=== PATIENT | female | born 1975 | race Caucasian/White ===

== ENCOUNTER → 2020-07-17 01:56 | Outpatient (CLI) | payer OTHER, SELFPAY ==
[2020-07-17 17:04] LABS: SARS-CoV-2 RNA PCR Negative
== END ==
PROVIDERS: PCP Internal Medicine; Visit Provider Internal Medicine Gastroenterology
DX: Z01.812 Encounter for preprocedural laboratory examination (principal); Z20.822 Contact with and (suspected) exposure to COVID-19
CPT/HCPCS: C9803; U0003; U0005

== ENCOUNTER 2020-07-20 00:49 | Day surgery (SDC) | payer OTHER, SELFPAY ==
[2020-07-11 08:41] VITALS: BMI 28.9
[2020-07-20 08:45] VITALS: BP 127/94; PULSE 88; RESP 16; TEMP 36.5; O2SAT 100; BMI 27.9
[2020-07-20] MEDS: LACTATED RINGERS 1,000 ML 150 ML IV CONT (08:53)
--- NOTE | 2020-07-20 09:04 | WPDGICN ---
GI Consult Note Consult date/time: 07/20/20 09:04 HPI: Reason for visit colonoscopy. This very pleasant lady seen in consultation request the primary physician. Impression: Her very pleasant lady with history of constipation and remote history of diarrhea. She is here for colonoscopy to assess for inflammatory Or neoplastic disease. Symptoms are most likely compatible to underlying IBS with constipation variant at this time. Non celiac gluten sensitivity. Graves disease status post radioactive iodine treatment. Now hypothyroid. History Zenker's diverticulum. Anxiety / depression. recommendation: Decreased Linzess does. Colonoscopy. History: This very pleasant lady has a history non celiac gluten sensitivity. She has remote history of diarrhea in the past. Patient recently has began complaining of increasing constipation. She is placed on Benefiber and align which seemed to help her symptoms. However, she continues passed mucus. Hematochezia, melena acholic stools tonight. She is here for colonoscopy. Physical examination: General: very pleasant patient in no acute distress. HEENT: Head was normocephalic sclerae is clear mouth without masses neck was supple. Heart: Rate rhythm regular without S3 or S4. Lungs: CTA. Abdomen: Soft with no guarding or rigidity. Bowel sounds were active. Neurologic: Cranial nerves 2 through 12 intact. No focal defects. No clonus. Musculoskeletal system: Revealed no joint tenderness or swelling no muscle atrophy. Extremities: Reveal no significant edema. Skin: Warm and dry with normal turgor. Mental status: intact. Patient is alert and oriented. Review of Systems Review of Systems: All systems reviewed & are unremarkable except as noted in HPI and below PMFSH Social History Social History (System 07/13/20 @ 12:23 by Emi Fabian) Smoking packs per day: 1 Smoking cigarettes per day: 20.0 Years smoked: 10 Smoking pack-years: 10.00 Smoking status: Former smoker Tobacco type: cigarettes Smoking end date: 02/17/17 Alcohol intake: current Alcohol use details: rarely Living arrangements: with family Gender identity (if verbalized by the patient): Female Spiritual care concerns: No Meds Home Medications and Allergies Home Medications Medication Instructions Recorded Confirmed Type Bifidobacterium infantis [Align] 10.5 mg PO DAILY 07/11/20 07/11/20 History levothyroxine 112 mcg PO DAILY 07/11/20 07/11/20 History linaclotide [Linzess] 145 mcg PO DAILY 07/11/20 07/11/20 History lorazepam 1 mg PO DAILY 07/11/20 07/11/20 History olmesartan 40 mg PO DAILY 07/11/20 07/11/20 History ubrogepant [Ubrelvy] 100 mg PO DAILY 07/11/20 07/11/20 History venlafaxine 75 mg PO HS 07/11/20 07/11/20 History Allergies Allergy/AdvReac Type Severity Reaction Status Date / Time amlodipine [From Lotrel] Allergy Swelling Verified 07/20/20 08:43 of Lip/Tongue/Throat benazepril [From Lotrel] Allergy Swelling Verified 07/20/20 08:43 of Lip/Tongue/Throat Vital Signs Vital Signs - 24 hr 07/20/20 08:45 Temperature 36.5 C Pulse Rate 88 Respiratory Rate 16 Blood Pressure 127/94 H Pulse Oximetry 100
--- NOTE | 2020-07-20 09:21 | WPDANESEPPF ---
Anes - Initial Pre Proc Eval Procedure: Operation Date: 07/20/20 10:00 Proposed Procedures p Screening Colonoscopy - Suleiman Valadez DO Date/Time: 07/20/20 09:21 Surgeon: Suleiman Valadez DO Pre Op Diagnosis: neoplasm screening Patient Data Age: 44 Gender: F Height: 5 ft 4 in Weight: 73.8 kg Last Vital Signs Temp 97.7 F 07/20/20 08:45 Pulse 88 07/20/20 08:45 Resp 16 07/20/20 08:45 BP 127/94 H 07/20/20 08:45 Pulse Ox 100 07/20/20 08:45 Allergies Allergy/AdvReac Type Severity Reaction Status Date / Time amlodipine [From Lotrel] Allergy Swelling Verified 07/20/20 08:43 of Lip/Tongue/Throat benazepril [From Lotrel] Allergy Swelling Verified 07/20/20 08:43 of Lip/Tongue/Throat Home Medications Medication Instructions Recorded Confirmed Type Bifidobacterium infantis [Align] 10.5 mg PO DAILY 07/11/20 07/11/20 History levothyroxine 112 mcg PO DAILY 07/11/20 07/11/20 History linaclotide [Linzess] 145 mcg PO DAILY 07/11/20 07/11/20 History lorazepam 1 mg PO DAILY 07/11/20 07/11/20 History olmesartan 40 mg PO DAILY 07/11/20 07/11/20 History ubrogepant [Ubrelvy] 100 mg PO DAILY 07/11/20 07/11/20 History venlafaxine 75 mg PO HS 07/11/20 07/11/20 History Patient hx anesthesia problems: none Family hx anesthesia problems: none PMFSH Past Medical History Medical History (Updated 07/20/20 @ 09:17 by Francois Villaseñor MD) Hypertension Hypothyroid Migraine Social History Social History (System 07/13/20 @ 12:23 by Emi Fabian) Smoking packs per day: 1 Smoking cigarettes per day: 20.0 Years smoked: 10 Smoking pack-years: 10.00 Smoking status: Former smoker Tobacco type: cigarettes Smoking end date: 02/17/17 Alcohol intake: current Alcohol use details: rarely Living arrangements: with family Gender identity (if verbalized by the patient): Female Spiritual care concerns: No Anes - Eval Final PreProcedure Day of Procedure 07/20/20 09:21 Patient weight: overweight Heart: regular rate and rhythm Lungs: clear to auscultation Airway: Mallampati scale class II Neurological: alert and oriented Last oral intake: >/= 8 hours ASA classification: III Emergent: no Anesthetic plan: proceed Anesthesia type and monitoring: general GIVS and standard monitoring Informed Consent: The patient's anesthetic plan and its attendant risks and benefits were discussed with the patient/family/POA. Questions were solicited and answers provided to the satisfaction of the patient/family/POA.
[2020-07-20 10:28] VITALS: BP 115/72; PULSE 72; RESP 23; O2SAT 100
[2020-07-20 10:38] VITALS: BP 107/73; PULSE 67; RESP 22; O2SAT 100
[2020-07-20 10:48] VITALS: BP 125/92; PULSE 62; RESP 15; O2SAT 100
== END 2020-07-20 10:54 | disposition home or self-care (01) ==
PROVIDERS: PCP Internal Medicine; Visit Provider Internal Medicine Gastroenterology
PROC: 0DJD8ZZ Inspection of Lower Intestinal Tract, Via Natural or Artificial Opening Endoscopic (ICD-10-PCS; CPT 45378; principal; 2020-07-20 10:00)
DX: K52.9 Noninfective gastroenteritis and colitis, unspecified (principal); K59.00 Constipation, unspecified; F41.8 Other specified anxiety disorders; E89.0 Postprocedural hypothyroidism; Z87.891 Personal history of nicotine dependence
CPT/HCPCS: 45380; 88305; J2704; J7120

== ENCOUNTER 2020-08-27 12:10 | Emergency (ER) | payer OTHER, SELFPAY ==
--- NOTE | ~2020-08-27 | XR_ITS ---
EXAMINATION: XR shoulder RT min 2V DATE: 08/27/2020 13:04 INDICATION: Right shoulder pain TECHNIQUE: 4 views of right shoulder were obtained. COMPARISON: None. FINDINGS: Bone alignment is normal. No fracture. Glenohumeral joint is normal. There is mild acromioc lavicular joint osteoarthritis. IMPRESSION: 1. Mild right acromioclavicular joint osteoarthritis. Reviewed, dictated and finalized at location A.
--- NOTE | ~2020-08-27 | CT_ITS ---
EXAMINATION: CT brain wo con DATE: 08/27/2020 12:57 INDICATION: Head injury. Right arm weakness. TECHNIQUE: Computed tomography (CT) of the head was performed without intravenous contrast. The mA wa s adjusted according to patient size. Iterative reconstruction technique was employed. The dose-lengt h product was 605.33 mGy-cm. COMPARISON: Head CT 11/07/2014, brain MRI 04/19/2012 FINDINGS: There is no intracranial hemorrhage, acute infarction, or abnormal intracranial mass lesion . The ventricles are normal in size. Cavum septum pellucidum and vergae are noted. There is minimal m ucosal thickening in the right maxillary sinus. The mastoid air cells are normal. The orbits are norm al. IMPRESSION: 1. Normal brain. Reviewed, dictated and finalized at location A. IMPRESSION: 1. Normal brain.
--- NOTE | ~2020-08-27 | CT_ITS ---
EXAMINATION: CT cervical spine wo con DATE: 08/27/2020 12:57 INDICATION: Neck injury. Right arm weakness. TECHNIQUE: Computed tomography (CT) of the cervical spine was performed without intravenous contrast. Automated exposure control and iterative reconstruction technique were employed. The dose-length pro duct was 216.67 mGy-cm. COMPARISON: None FINDINGS: There is mild emphysema. There is hypolordosis of cervical spine. Vertebral body heights an d intervertebral disc heights are normal. The following disc levels are specifically discussed: C2-C3: There is no uncovertebral joint osteoarthritis. There is no facet joint osteoarthritis. There is no neural foraminal stenosis. There is no central canal stenosis. C3-C4: There is mild left uncovertebral joint osteoarthritis. There is mild bilateral facet joint ost eoarthritis. There is no neural foraminal stenosis. There is no central canal stenosis. C4-C5: There is no uncovertebral joint osteoarthritis. There is no facet joint osteoarthritis. There is no neural foraminal stenosis. There is no central canal stenosis. C5-C6: There is no uncovertebral joint osteoarthritis. There is no facet joint osteoarthritis. There is no neural foraminal stenosis. There is no central canal stenosis. C6-C7: There is no uncovertebral joint osteoarthritis. There is no facet joint osteoarthritis. There is no neural foraminal stenosis. There is no central canal stenosis. C7-T1: There is no uncovertebral joint osteoarthritis. There is mild bilateral facet joint osteoarthr itis. There is no neural foraminal stenosis. There is no central canal stenosis. IMPRESSION: 1. No fracture. 2. Mild cervical spondylosis. Reviewed, dictated and finalized at location A.
--- NOTE | ~2020-08-27 | XR_ITS ---
EXAMINATION: XR forearm RT 2V DATE: 08/27/2020 13:37 INDICATION: Right forearm injury and pain. TECHNIQUE: 2 views of right forearm were obtained. COMPARISON: None. FINDINGS: Bone alignment is normal. No fracture. Joint spaces are well maintained. There is no elbow joint effusion. IMPRESSION: 1. No fracture. Reviewed, dictated and finalized at location A. IMPRESSION: 1. No fracture.
[2020-08-27 12:22] VITALS: BP 151/99; PULSE 76; RESP 20; TEMP 36.7; O2SAT 100
--- NOTE | 2020-08-27 13:24 | ED.GENADULT ---
HPI - General Adult General Chief complaint: Extremity Injury, Upper Stated complaint: fall, pain to head and right arm Time Seen by Provider: 08/27/20 12:40 Source: patient History of Present Illness HPI narrative: Patient is a 44 y/o female complaining of right sided headache and arm pain following a fall 1 week ago. She states that she fell down a flight of stairs at home. She did not immediately seek medical attention. However, she has persist pain and decided to come for evaluation. She describes her pain as aching and rates it as 8/10. She tooke Tylenol which did not help. Related Data Home Medications Medication Instructions Recorded Confirmed Bifidobacterium infantis [Align] 10.5 mg PO DAILY 07/11/20 07/11/20 levothyroxine 112 mcg PO DAILY 07/11/20 07/11/20 linaclotide [Linzess] 145 mcg PO DAILY 07/11/20 07/11/20 lorazepam 1 mg PO DAILY 07/11/20 07/11/20 olmesartan 40 mg PO DAILY 07/11/20 07/11/20 ubrogepant [Ubrelvy] 100 mg PO DAILY 07/11/20 07/11/20 venlafaxine 75 mg PO HS 07/11/20 07/11/20 Allergies Allergy/AdvReac Type Severity Reaction Status Date / Time amlodipine [From Lotrel] Allergy Swelling Verified 08/27/20 12:25 of Lip/Tongue/Throat benazepril [From Lotrel] Allergy Swelling Verified 08/27/20 12:25 of Lip/Tongue/Throat Review of Systems Review of Systems: All systems reviewed & are unremarkable except as noted in HPI and below Constitutional: Constitutional: Denies chills, Denies fever(s), Reports headache(s) and Denies weakness Eyes: Eyes: Denies blurry vision ENT: Reports headache(s) and Denies neck pain Cardiovascular: Cardiovascular: Denies chest pain and Denies dyspnea Respiratory: Respiratory: Denies cough and Denies dyspnea Gastrointestinal: Gastrointestinal: Denies abdominal pain, Denies diarrhea, Denies nausea and Denies vomiting Genitourinary: Genitourinary: Denies hematuria and Denies dysuria Musculoskeletal: Musculoskeletal: Denies back pain, Denies neck pain and Reports other (right arm pain) Neurologic: Reports headache(s) and Denies weakness [facility] Past Medical History Medical History Hypertension Hypothyroid Migraine Social History Social History Smoking packs per day: 1 Smoking cigarettes per day: 20.0 Years smoked: 10 Smoking pack-years: 10.00 Smoking status: Former smoker Tobacco type: cigarettes Smoking end date: 02/17/17 Alcohol intake: current Alcohol use details: rarely Gender identity (if verbalized by the patient): Female Spiritual care concerns: No Course Vital Signs Vital signs: Vital Signs Temperature 36.7 C 08/27/20 12:22 Pulse Rate 76 08/27/20 12:22 Respiratory Rate 20 08/27/20 12:22 Blood Pressure 151/99 H 08/27/20 12:22 Pulse Oximetry 100 08/27/20 12:22 Temperature 36.7 C 08/27/20 12:22 Pulse Rate 60 08/27/20 15:34 Respiratory Rate 20 08/27/20 15:34 Blood Pressure 140/88 08/27/20 15:34 Pulse Oximetry 99 08/27/20 15:34 Medical Decision Making Vital Signs Vital Signs: Vital Signs Temperature 36.7 C 08/27/20 12:22 Pulse Rate 76 08/27/20 12:22 Respiratory Rate 20 08/27/20 12:22 Blood Pressure 151/99 H 08/27/20 12:22 Pulse Oximetry 100 08/27/20 12:22 Temperature 36.7 C 08/27/20 12:22 Pulse Rate 60 08/27/20 15:34 Respiratory Rate 20 08/27/20 15:34 Blood Pressure 140/88 08/27/20 15:34 Pulse Oximetry 99 08/27/20 15:34 Discharge Plan Discharge Clinical Impression: Arm pain, right Headache Qualifiers: Headache type: unspecified Headache chronicity pattern: unspecified pattern Intractability: not intractable Qualified Code(s): R51.9 - Headache, unspecified Patient Disposition: Home, Self-Care Condition: Stable Instructions: Arm Pain (ED), General Headache (ED) Prescriptions: No Action venlafaxi
[2020-08-27] MEDS: KETOROLAC (*BKC) 60 MG/2 ML VIAL IM (13:51)
[2020-08-27 13:53] VITALS: BP 133/102; PULSE 67; RESP 20; O2SAT 100
[2020-08-27 14:53] VITALS: BP 114/77; PULSE 63; RESP 20; O2SAT 100
[2020-08-27 15:34] VITALS: BP 140/88; PULSE 60; RESP 20; O2SAT 99
== END 2020-08-27 15:37 | disposition home or self-care (01) ==
PROVIDERS: Emergency Provider Emergency Medicine; PCP Internal Medicine
DX: R51.9 Headache, unspecified (principal); M79.601 Pain in right arm; I10 Essential (primary) hypertension; E03.9 Hypothyroidism, unspecified; Z87.891 Personal history of nicotine dependence
CPT/HCPCS: 70450; 72125; 73030; 73090; 96372; 99284; A9270; J1885

== ENCOUNTER 2020-10-05 12:30 | Outpatient (CLI) | payer OTHER, SELFPAY ==
--- NOTE | ~2020-10-05 | XR_ITS ---
EXAMINATION: XR lg joint inject/asp w image DATE: 10/05/2020 13:31 INDICATION: Right frozen shoulder TECHNIQUE: A time-out was performed to verify the patient's name, date of , and procedure to b e performed. The procedure including the risks, benefits, and alternatives was discussed with the pat ient. Risks discussed included bleeding and infection. The patient understood the risks and agreed to proceed. The skin overlying the rotator cuff interval of the right glenohumeral joint was prepped a nd draped in usual sterile fashion. Anesthetic was administered with 1% lidocaine subcutaneously. A 22 G needle was advanced under fluoroscopic guidance into the joint. Injection of 1 mL of Omnipaque 240 confirmed intra-articular position of the needle. Subsequently, injectate consisting of 5 mL of a 4:1 mixture of 1% lidocaine: 80 mg/mL Depo-Medrol for a total dose of 80 mg Depo-Medrol was instil led. Washout of contrast was seen confirming intra-articular administration. The needle was removed a nd the entry site was cleaned and dressed. There were no immediate complications. Fluoroscopy exposu re time was 0.1 minutes. The total number of images was 2. FINDINGS: Real-time fluoroscopy demonstrates the needle and contrast in the right glenohumeral joint. Patient's pain prior to procedure:5/10. Patient's pain following the procedure: 2/10. IMPRESSION: 1. Right glenohumeral joint injection of local anesthetic and steroid with decrease in the patient's presenting pain. Reviewed, dictated and finalized at location A. IMPRESSION: 1. Right glenohumeral joint injection of local anesthetic and steroid with decr ease in the patient's presenting pain.
== END 2020-10-05 12:31 | disposition home or self-care (01) ==
LOC: ANHIMG 12:34
PROVIDERS: PCP Internal Medicine; Visit Provider Physician Assistant Surgical
DX: M75.01 Adhesive capsulitis of right shoulder (principal)
CPT/HCPCS: 20610; 77002; J1040; Q9966